=== PATIENT | male | born 1975 ===

== ENCOUNTER 2020-05-06 12:11 | Inpatient (IN) ==
[~2020-05-06 12:11] MED LIST: Buffered Lidocaine 1% SYRIN 1 ml INTRADERM ONE; Lactated Ringers 1000 ml BAG 1,000 ML IV SCH
[2020-05-06] MEDS ORDERED: Midazolam 2 mg/2 ml VIAL 1 mg/ml 2 ml VIAL (2 mg) ONE (12:53)
[2020-05-06] MEDS ORDERED: fentaNYL 100 mcg/2 ml 50 MCG/ML VIAL ONE ×3 (12:53→17:37)
[2020-05-06] MEDS ORDERED: Vancomycin 1,000 MG VIAL ONE (13:18)
[2020-05-06] MEDS ORDERED: Bacitracin INJECTION 50,000 UNITS ONE ×3 (13:19→13:32)
[2020-05-06] MEDS ORDERED: ceFAZolin 1 GM ADVAN 1 GM ADDV.VIAL IVPB ONE (13:20)
[2020-05-06] MEDS ORDERED: ceFAZolin 2 GM PREMIX 2 GM/50 ML BAG ONE (13:20)
[2020-05-06] MEDS ORDERED: Rocuronium 50 mg VIAL 10 mg/ml 5 ml VIAL (50 mg) ONE (13:42)
[2020-05-06] MEDS ORDERED: Propofol 10 MG/ML 20 ML BTL ONE ×2 (13:51→16:06)
[2020-05-06] MEDS ORDERED: Lidocaine 2% PF 5 ML VIAL ONE (13:51)
[2020-05-06] MEDS ORDERED: Ketamine HCL 50 mg/ml 10 ml VIAL (500 MG) ONE (14:19)
[2020-05-06 14:22] LABS: Urine Benzodiazepine Screen None Detected (None Detect); Urine Cannabinoids Screen Presumptive Positive (None Detect); Urine Opiates Screen None Detected (None Detect)
[2020-05-06] MEDS ORDERED: Ondansetron 4 mg VIAL 2 MG/ML 2 ml VIAL ONE (14:41)
[2020-05-06] MEDS ORDERED: Dexamethasone IV 4 MG/ML VIAL 1 ml VIAL ONE (14:41)
[2020-05-06] MEDS ORDERED: Naloxone 0.4 mg VIAL 0.4 mg/ml 1 ml VIAL IV PRN (15:48)
[2020-05-06] MEDS ORDERED: HYDROmorphone 1 MG/1 ML SYRINGE ONE (15:52)
[2020-05-06] MEDS ORDERED: Phenylephrine IV 10 MG/ML 1 ml VIAL ONE (16:13)
[2020-05-06] MEDS ORDERED: diPHENhydraMINE 25 mg TAB PO PRN (16:51)
[2020-05-06] MEDS ORDERED: Magnesium Hydroxide LIQ 30 ML UDC PO PRN (16:51)
[2020-05-06] MEDS ORDERED: diPHENhydraMINE IV 50 MG/ML 1 ml VIAL (BENADRYL) IV PRN (16:51)
[2020-05-06] MEDS ORDERED: Morphine 2 MG/ML SYRINGE IV PRN (16:51)
[2020-05-06] MEDS ORDERED: Ondansetron ODT 4 mg TAB 4 MG TAB PO PRN (16:51)
[2020-05-06] MEDS ORDERED: Lactulose 30 ml UDC PO PRN (16:51)
[2020-05-06] MEDS ORDERED: Ondansetron 4 mg VIAL 2 MG/ML 2 ml VIAL IV PRN (16:51)
[2020-05-06] MEDS ORDERED: Lactated Ringers 1000 ml BAG 1,000 ML IV SCH (17:00)
[2020-05-06] MEDS ORDERED: Vancomycin per Pharmacy 1 EA NOTE FOLLOW UP SCH (17:00)
[2020-05-06] MEDS: fentaNYL 100 mcg/2 ml 50 MCG/ML VIAL IV PRN ×5 (17:06→17:40)
[2020-05-06] MEDS: Buprenorp/Nalox 8-2 MG FILM SL FILM SCH (20:25)
[2020-05-06] MEDS: Magnesium Hydroxide LIQ 30 ML UDC PO SCH (20:27)
[2020-05-06] MEDS: VANCOMYCIN 1500 MG IVPB SCH (22:50)
[2020-05-07 04:57] LABS: Hematocrit 29 % (42-52); Hemoglobin 9.5 g/dL (14.0-18.0); Mean Platelet Volume 7.1 fL (7.4-10.4); Platelet Count 291 10^3/uL (150-450)
[2020-05-07 05:11] LABS: BUN/Creatinine Ratio 17.6 (8-20); Calcium 8.6 mg/dL (8.6-10.3); EGFR African American 117.9 (>60); EGFR Non-African American 97.5 (>60); Potassium 4.1 mmol/L (3.5-5.0)
[2020-05-07] MEDS: Cholecalciferol (VIT D3) 1,000 unit TAB PO SCH (08:58)
[2020-05-07 08:59] LABS: Mean Corpuscular HGB Conc 33 g/dL (31-36); Mean Corpuscular Hemoglobin 25 pg (27-31); Mean Corpuscular Volume 77 fL (80-94); Red Blood Count 3.75 10^6 /uL (4.18-5.48); Red Cell Distribution Width 16 % (10-15); White Blood Count 13.5 10^3/uL (3.5-10.8)
[2020-05-07] MEDS: Buprenorp/Nalox 8-2 MG FILM SL FILM SCH ×3 (08:59→21:11)
[2020-05-07] MEDS: Magnesium Hydroxide LIQ 30 ML UDC PO SCH ×2 (09:00→21:12)
[2020-05-07 09:01] LABS: C Reactive Protein 70.25 mg/L (<8.01)
[2020-05-07] MEDS: Vitamin THERAPEUTIC TAB PO SCH (09:02)
[2020-05-07] MEDS: VANCOMYCIN 1500 MG IVPB SCH ×2 (11:09→23:16)
[2020-05-08 04:58] LABS: Hematocrit 26 % (42-52); Hemoglobin 8.4 g/dL (14.0-18.0); Mean Platelet Volume 7.3 fL (7.4-10.4); Platelet Count 242 10^3/uL (150-450)
[2020-05-08] MEDS: Vitamin THERAPEUTIC TAB PO SCH (09:32)
[2020-05-08] MEDS: Cholecalciferol (VIT D3) 1,000 unit TAB PO SCH (09:32)
[2020-05-08] MEDS: Buprenorp/Nalox 8-2 MG FILM SL FILM SCH ×3 (09:32→21:25)
[2020-05-08] MEDS: Magnesium Hydroxide LIQ 30 ML UDC PO SCH ×2 (09:33→21:25)
[2020-05-08 10:29] LABS: ABS Basophils 0.1 10^3/ul (0-0.2); ABS Eosinophils 0.1 10^3/ul (0-0.6); ABS Lymphocytes 2.5 10^3/ul (1.0-4.8); ABS Monocytes 0.6 10^3/ul (0-0.8); ABS Neutrophils 6.5 10^3/ul (1.5-7.7); Eosinophil % 0.8 %; Hematocrit 27 % (42-52); Hemoglobin 8.9 g/dL (14.0-18.0); Lymphocyte % 25.5 %; Mean Corpuscular HGB Conc 33 g/dL (31-36); Mean Corpuscular Hemoglobin 25 pg (27-31); Mean Corpuscular Volume 77 fL (80-94); Mean Platelet Volume 6.9 fL (7.4-10.4); Platelet Count 255 10^3/uL (150-450); Red Blood Count 3.53 10^6 /uL (4.18-5.48); Red Cell Distribution Width 16 % (10-15); White Blood Count 9.7 10^3/uL (3.5-10.8)
[2020-05-08] MEDS ORDERED: Vancomycin Trough Check NOTE FOLLOW UP ONE (10:30)
[2020-05-08 10:47] LABS: C Reactive Protein 70.25 mg/L (<8.01)
[2020-05-08 11:09] LABS: Vancomycin Trough 10.5 mcg/mL
[2020-05-08] MEDS: VANCOMYCIN 1500 MG IVPB SCH (12:02)
[2020-05-09] MEDS: VANCOMYCIN 1500 MG IVPB SCH ×3 (00:57→23:53)
[2020-05-09] MEDS: Cholecalciferol (VIT D3) 1,000 unit TAB PO SCH (09:28)
[2020-05-09] MEDS: Vitamin THERAPEUTIC TAB PO SCH (09:28)
[2020-05-09] MEDS: Buprenorp/Nalox 8-2 MG FILM SL FILM SCH ×3 (09:28→21:48)
[2020-05-09] MEDS: Magnesium Hydroxide LIQ 30 ML UDC PO SCH ×2 (09:33→21:49)
[2020-05-10] MEDS: ceFAZolin 2 GM PREMIX 2 GM/50 ML BAG IVPB SCH ×3 (09:19→15:35)
[2020-05-10] MEDS: Buprenorp/Nalox 8-2 MG FILM SL FILM SCH ×2 (09:19→13:56)
[2020-05-10] MEDS: Vitamin THERAPEUTIC TAB PO SCH (09:19)
[2020-05-10] MEDS: Cholecalciferol (VIT D3) 1,000 unit TAB PO SCH (09:19)
[2020-05-10] MEDS: Magnesium Hydroxide LIQ 30 ML UDC PO SCH (09:26)
[2020-05-10 12:10] VITALS: BP 143/77
[2020-05-10 16:14] LABS: Albumin 3.5 g/dL (3.2-5.2); Albumin/Globulin Ratio 1.1 (1-3); Globulin 3.1 g/dL (2-4); Indirect Bilirubin 0.2 mg/dL (0.3-1.0); Total Bilirubin 0.3 mg/dL (0.2-1.0); Total Protein 6.6 g/dL (6.4-8.9)
[2020-05-11 00:08] LABS: Albumin 3.4 g/dL (3.2-5.2); Indirect Bilirubin 0.2 mg/dL (0.3-1.0); Total Bilirubin 0.3 mg/dL (0.2-1.0)
[2020-05-11 00:14] LABS: Globulin 3.4 g/dL (2-4); Total Protein 6.8 g/dL (6.4-8.9)
[2020-05-11] MEDS ORDERED: Vancomycin Trough Check NOTE FOLLOW UP ONE (10:30)
== END 2020-05-10 16:25 | disposition home health service (06) | DRG 349 ==
LOC: SSU 12:11 → OR 12:11 → OBSVTOIN 16:51
PROVIDERS: ADMIT Orthopaedic Surgery Adult Reconstructive Orthopaedic Surgery; ATTEND Orthopaedic Surgery Adult Reconstructive Orthopaedic Surgery